=== PATIENT | female | born 1980 | race Caucasian/White ===

== ENCOUNTER → 2017-06-05 10:58 | Outpatient (CLI) | payer OTHER, SELFPAY ==
[2017-06-05 11:57] LABS: Hematocrit 39.5 % (37-47); Hemoglobin 13.3 g/dl (12.0-15.0); Mean Corp Hgb Conc 33.7 g/gl (32-36); Mean Corpuscular Hgb 30.6 pg (27.0-32.0); Mean Platelet Vol. 10.6 fl (6.2-12.0); Platelet Count 267 K/mm3 (150-450); RBC Distribution Width CV 12.5 % (11.6-14.6); RBC Distribution Width SD 41.1 fl (35.1-43.9); Red Blood Count 4.34 M/mm3 (4.2-5.4); White Blood Count 6.6 K/mm3 (4.4-11.0)
[2017-06-05 11:58] LABS: Scan Indicated on CBC? Y/N NO
[2017-06-05 12:37] LABS: hCG Titer Quant., Serum < 1 mIU/mL (<9 non-preg)
[2017-06-05 12:44] LABS: ALB/GLOB Ratio 1.1 RATIO (0.9-2.4); AST(SGOT) 13 U/L (15-37); Alanine Aminotransfer ALT/SGPT 16 U/L (13-56); Albumin, Serum 3.6 g/dL (3.2-5.0); Alkaline Phosphatase 51 U/L (45-117); Anion Gap 7 (5-15); BUN 9 mg/dL (7-18); BUN/Creat Ratio 12.9 RATIO (10-20); Bilirubin, Direct 0.05 mg/dL (0.00-0.30); Calcium,Total 9.1 mg/dL (8.5-10.1); Chloride 108 mmol/L (98-107); EST Glomerular Filtration Rate 99 mL/min (>60); Est Glom Filt Rate - Afr Amer 120 mL/min (>60); Estradiol 28.9 pg/mL; Follicle Stimulating Hormone 6.5 mIU/mL; Globulin 3.4 g/dL (2.2-4.2); Glucose 88 mg/dL (74-106); Luteinizing Hormone 3.2 mIU/mL; Potassium 3.9 mmol/L (3.5-5.1); Prolactin 3.4 ng/mL; Sodium Level 139 mmol/L (136-145); Thyroid Stim Hormone (TSH) 0.86 uIU/mL (0.358-3.74)
[2017-06-05 12:49] LABS: Progesterone Level 0.69 ng/mL (See Comment); Rubella IgG > 500.0 IU/mL; Vitamin D,25 Hydroxy 16.8 ng/mL (29.95-100.01)
[2017-06-08 14:07] LABS: DHEA Sulfate 322.9 ug/dL (57.3-279.2)
[2017-06-08 15:30] LABS: Anti-Mullerian Hormone,Serum 2.19 ng/mL (.); V-Zoster IgG (Immunity) 1255 index (Immune >165)
[2017-06-09 11:22] LABS: 17-Hydroxyprogesterone 15 ng/dL (.)
== END ==
PROVIDERS: Family Provider Emergency Medicine; PCP Emergency Medicine; Visit Provider Obstetrics & Gynecology Reproductive Endocrinology
DX: N91.4 Secondary oligomenorrhea (principal); E55.9 Vitamin D deficiency, unspecified; R53.83 Other fatigue; Z01.83 Encounter for blood typing; Z32.00 Encounter for pregnancy test, result unknown; Z11.59 Encounter for screening for other viral diseases; Z11.9 Encounter for screening for infectious and parasitic diseases, unspecified
CPT/HCPCS: 36415; 80053; 82248; 82306; 82627; 82670; 83001; 83002; 83498; 83516; 84144; 84146; 84403; 84439; 84443; 84702; 85027; 86762; 86787; 86900; 82626

== ENCOUNTER → 2017-12-06 08:35 | Outpatient (CLI) | payer OTHER, SELFPAY ==
[2017-12-06 09:18] LABS: hCG Titer Quant., Serum < 1 mIU/mL (<9 non-preg)
== END ==
PROVIDERS: Referring Provider Obstetrics & Gynecology Reproductive Endocrinology; Visit Provider Obstetrics & Gynecology Reproductive Endocrinology
DX: Z32.00 Encounter for pregnancy test, result unknown (principal)
CPT/HCPCS: 36415; 84702

== ENCOUNTER 2022-03-03 17:30 | Observation (INO) | payer OTHER, SELFPAY ==
[2022-03-03] VITALS (7 sets, daily range): BP systolic 98–139; BP diastolic 62–92; PULSE 73–93; RESP 16–18; TEMP 36.3–36.8; O2SAT 87–99; BMI 31.6; BMI 33.6
--- NOTE | 2022-03-03 18:07 | EDS_ITS ---
HPI HPI - GI History of Present Illness Chief Complaint: Abd Pain Narrative Narrative: 41-year-old female past medical history of hypothyroidism presents with abdominal pain that she has had all day. She denies any fevers or chills but states she is nauseated. She has not had any vomiting. She states she had 3 episodes of nonbloody diarrhea/loose stool today. States her pain is all over her abdomen that is somewhat achy but has sharp pain and the right lower quadrant to right upper quadrant of her abdomen. Past surgical history does include bilateral tubal ligation and sections. She denies any exacerbating or alleviating symptoms. She presents because of the ongoing abdominal pain. 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 HEENT: No sore throat. No neck pain. No loss of vision. No rhinorrhea. Cardiovascular: No chest pain. No palpitations. No pedal edema. Respiratory: No cough, no shortness of breath. Abdominal: Diffuse to right lower quadrant abdominal pain. Positive nausea. No vomiting. 3 episodes of nonbloody loose stool/diarrhea. Genitourinary: No dysuria. No hematuria. Musculoskeletal: No myalgias. No arthralgias. Neurologic: No headaches. No dizziness. No lightheadedness. Skin: No rash. No change in color. Psychiatric: No depression. No anxiety. EXAM Physical Exam Narrative Exam Narrative: Afebrile. Vital signs noted. HEENT: Normocephalic. Atraumatic. PERRL, EOMI. Neck soft and supple. No point tenderness or step off. Cardiovascular: Regular rate and rhythm. No murmurs, rubs, or gallops appreciated. Respiratory: No tachypnea. Lungs clear to auscultation bilaterally. Gastrointestinal: Abdomen soft, with tenderness in right lower quadrant over McBurney's point with normoactive bowel sounds. No rebound or guarding. Negative Rovsing sign. Neurological: Awake. Alert. Nonfocal, nonlateralizing. Skin: No rash. Normal color. No pallor. Musculoskeletal: No pedal edema. Full range of motion extremities. Const Vital Signs: 03/03/22 17:32 03/03/22 21:19 03/03/22 21:56 Temperature 97.8 F 97.4 F L 98.3 F Temperature Source Temporal Temporal Temporal Pulse Rate 78 86 93 Respiratory Rate 16 16 16 Respiratory Pattern Normal Blood Pressure 139/78 H 126/78 H 120/79 Blood Pressure Mean 98 94 92 Blood Pressure Source Monitor Blood Pressure Position Semi-Fowlers Blood Pressure Location Right Arm Baseline BP 126/78 Pulse Ox 99 98 87 Oxygen Delivery Method Room Air Room Air Room Air Oxygen Flow Rate (L/min) 03/03/22 22:01 03/03/22 22:15 03/03/22 22:30 Temperature 97.8 F Temperature Source Temporal Pulse Rate 92 89 76 Respiratory Rate 16 18 18 Respiratory Pattern Blood Pressure 115/77 104/92 H 107/80 Blood Pressure Mean 89 96 89 Blood Pressure Source Monitor Monitor Monitor Blood Pressure Position Semi-Fowlers Semi-Fowlers Semi-Fowlers Blood Pressure Location Right Arm Right Arm Right Arm Baseline BP 126/78 126/78 126/78 Pulse Ox 93 92 93 Oxygen Delivery Method Nasal Cannula Nasal Cannula Nasal Cannula Oxygen Flow Rate (L/min) 2 2 2 MDM MDM MDM Narrative Medical decision making narrative: In the differential diagnosis is acute appendicitis versus right-sided diverticulitis, and lower on the differential is ureterolithiasis. Comprehensive work-up was pursued. I do feel CT imaging is indicated. She was administered morphine and ondansetron and a bolus of normal saline 1 L intravenously. Although she has a bilateral tubal ligation, serum test was obtained to rule out ectopic . In review of her laboratory work, she has an elevated white count of 14.5, normal hemoglobin of 13.4, platelet count normal at 302. CMP was reviewed and is remarkable for glucose of 107 with a normal anion gap of 7. AST low at 9, ALT normal at 22. Lipase low at 51. Sodium normal at 136 with potassium normal at 3.5. Urinalysis was reviewed and is negative for infection. Serum test is negative. CT report was reviewed and she has a dilated appendix that is fluid-filled consistent with acute appendicitis as there is noted stranding. Upon repeat examination, her abdomen remains soft but she has tenderness over McBurney's point in the right lower quadrant that remains. Patient was discu ssed with Dr. Jerod Nye with general surgery. Patient will be taken to the OR. She was started on Zosyn 3.35 g intravenously. Disposition is admit to the OR in stable condition. Lab Data Attestation: I reviewed the patient's lab results. Labs: Laboratory Results - last 24 hr 03/03/22 03/03/22 03/03/22 17:48 17:48 17:48 WBC 14.5 H RBC 4.43 Hgb 13.4 Hct 39.4 MCV 88.9 MCH 30.2 MCHC 34.0 RDW Std Deviation 39.8 RDW Coeff of Pola 12.2 Plt Count 302 MPV 9.9 Immature Gran % (Auto) 0.500 Neut % (Auto) 83.1 H Lymph % (Auto) 10.2 L [place] % (Auto) 5.1 Eos % (Auto) 0.8 Baso % (Auto) 0.3 Absolute Neuts (auto) 12.0 H Absolute Lymphs (auto) 1.47 Nucleated RBC % 0 Sodium 136 Potassium 3.5 Chloride 105 Carbon Dioxide 24.0 Anion Gap 7 BUN 11 Creatinine 0.56 Estim Creat Clear Calc 116.56 Est GFR (MDRD) Af Amer 153 Est GFR (MDRD) Non-Af 126 BUN/Creatinine Ratio 19.8 Glucose 107 H Calcium 9.0 Total Bilirubin 0.40 AST 9 L ALT 22 Alkaline Phosphatase 50 Total Protein 7.1 Albumin 3.9 Globulin 3.2 Albumin/Globulin Ratio 1.2 Lipase 51 L Serum , Qual Urine Color Yellow Urine Clarity Clear Urine pH 6.0 Ur Specific [place] 1.020 Urine Protein Negative Urine Glucose (UA) Normal Urine Ketones Negative Urine Occult Blood 25 H Urine Nitrite Negative Urine Bilirubin Negative Urine Urobilinogen Normal Ur Leukocyte Esterase Negative Urine RBC 0 SEEN Urine WBC 0-5 SEEN Ur Squamous Epith Cells 0-5 SEEN Urine Bacteria 0 SEEN Urine Mucus 1+ 03/03/22 17:48 WBC RBC Hgb Hct MCV MCH MCHC RDW Std Deviation RDW Coeff of Pola Plt Count MPV Immature Gran % (Auto) Neut % (Auto) Lymph % (Auto) [place] % (Auto) Eos % (Auto) Baso % (Auto) Absolute Neuts (auto) Absolute Lymphs (auto) Nucleated RBC % Sodium Potassium Chloride Carbon Dioxide Anion Gap BUN Creatinine Estim Creat Clear Calc Est GFR (MDRD) Af Amer Est GFR (MDRD) Non-Af BUN/Creatinine Ratio Glucose Calcium Total Bilirubin AST ALT Alkaline Phosphatase Total Protein Albumin Globulin Albumin/Globulin Ratio Lipase Serum , Qual NEGATIVE Urine Color Urine Clarity Urine pH Ur Specific [place] Urine Protein Urine Glucose (UA) Urine Ketones Urine Occult Blood Urine Nitrite Urine Bilirubin Urine Urobilinogen Ur Leukocyte Esterase Urine RBC Urine WBC Ur Squamous Epith Cells Urine Bacteria Urine Mucus Radiography Diagnostic Testing: Clinical Impression(s) from Imaging Studies Abdomen/Pelvis CT 03/03/22 18:07 IMPRESSION: Acute uncomplicated appendicitis. Electronically Signed: Diego Poole MD at 19:43 EST , Discharge Plan Disposition Disposition: Acute Care Hospital [facility] Discharge Date/Time: 03/03/22 21:03
--- NOTE | 2022-03-03 18:07 | CT_ITS ---
INDICATION: RLQ pain EXAMINATION: CT ABDOMEN AND PELVIS WITH CONTRAST - CT Abdomen And Pelvis W/ Contrast Injection TECHNIQUE: Helically acquired images were obtained of the abdomen and pelvis following IV contrast. A radiation dose optimization technique was used for this scan. IV Contrast dosage and agent: 97 cc [id number] Oral contrast: None. COMPARISON: None. FINDINGS: LOWER CHEST: Lung bases are clear. No cardiomegaly or pericardial effusion. LIVER: Homogeneous. No focal mass. GALLBLADDER AND BILIARY TREE: No calcified gallstones. No gallbladder distension or wall edema. No intra- or extrahepatic biliary ductal dilation. PANCREAS: No focal cystic or solid mass. SPLEEN: Normal size without focal cystic or solid mass. ADRENAL GLANDS: No nodules. KIDNEYS AND URETERS: Normal renal size and position. No hydronephrosis. PERITONEUM: No ascites or free air. No other fluid collection. BOWEL: Enlarged, fluid-filled appendix with periappendiceal inflammatory stranding. No associated free gas or encapsulated fluid collection. No stomach or bowel distension. No focal inflammatory change. LYMPH NODES: No enlarged mesenteric or retroperitoneal lymph nodes. VESSELS: Aorta is non-dilated. URINARY BLADDER: Unremarkable. REPRODUCTIVE ORGANS: Bilateral tubal ligation clips. ABDOMINAL WALL: No discrete abdominal or pelvic wall hernia. BONES: Normal thoracolumbar vertebral alignment. CT/Abdomen/Pelvis W IV Cont ONLY IMPRESSION: Acute uncomplicated appendicitis. Electronically Signed: Diego Poole MD at 19:43 EST ,
[2022-03-03 18:11] LABS: Bacteria 0 SEEN /hpf (None Seen); Red Blood Cells-Urine 0 SEEN /hpf (0-5)
[2022-03-03] MEDS: 0.9% Normal Saline 1,000 ML 1000 ML IV (18:17)
[2022-03-03] MEDS: Ondansetron 4 MG/2 ML Vial IV ×2 (18:17→23:18)
[2022-03-03] MEDS: Morphine 4 MG/ML Syringe IV (18:17)
[2022-03-03 18:21] LABS: Color, Urine Yellow (Yellow); Glucose, Dipstick Normal (Normal); Ketone-Dipstick Negative (Negative); Leukocyte Esterase-Dipstick Negative /ul (Negative); Nitrite-Dipstick Negative (Negative); Occult Blood-Urine 25 /ul (Negative); Protein-Dipstick Negative (Negative); Urine Bilirubin Dipstick Negative (Negative); Urine Clarity Clear (Clear); Urine Urobilinogen Normal (Normal)
[2022-03-03 18:34] LABS: ALB/GLOB Ratio 1.2 RATIO (0.9-2.4); AST(SGOT) 9 U/L (15-37); Alanine Aminotransfer ALT/SGPT 22 U/L (13-56); Albumin, Serum 3.9 g/dL (3.2-5.0); Alkaline Phosphatase 50 U/L (45-117); Anion Gap 7 (5-15); BUN 11 mg/dL (7-18); BUN/Creat Ratio 19.8 RATIO (10-20); Chloride 105 mmol/L (98-107); Creatinine, Serum 0.56 mg/dL (0.55-1.02); EST Glomerular Filtration Rate 126 mL/min (>60); Est Glom Filt Rate - Afr Amer 153 mL/min (>60); Estimated Creatinine Clearance 116.56 ml/min; Globulin 3.2 g/dL (2.2-4.2); Glucose 107 mg/dL (74-106); Lipase 51 U/L (73-393); Potassium 3.5 mmol/L (3.5-5.1); Protein, Total 7.1 g/dL (6.4-8.2); Sodium Level 136 mmol/L (136-145)
[2022-03-03 18:52] LABS: Internal QC Validated? YES +Cl - CLEAR BKGD; Pregnancy, Serum, hCG Quali. NEGATIVE Negative
[2022-03-03 19:15] LABS: Mucous, Urine 1+ /hpf (<or=2+); Squamous Epithelial Cells - UA 0-5 SEEN /hpf (5-10); White Blood Cells 0-5 SEEN /hpf (0-5)
[2022-03-03 19:53] LABS: Absolute Lymphocyte Count 1.47 X10^3/uL (0.83-4.51); Basophil# 0.04 X10^3/uL; Basophil% 0.3 % (0-1); Eosinophil# 0.11 X10^3/uL; Eosinophils% 0.8 % (0-5); Hematocrit 39.4 % (37-47); Hemoglobin 13.4 g/dL (12.0-15.0); Lymphocyte # 1.47 X10^3/ul (0.83-4.51); Lymphocyte % 10.2 % (19-41); Mean Corpuscular Hgb 30.2 pg (27.0-32.0); Mean Corpuscular Volume 88.9 fL (81-99); Mean Platelet Vol. 9.9 fl (6.2-12.0); Monocyte# 0.73 X10^3/uL; Monocyte% 5.1 % (0-10); NRBC Flagged by Analyzer 0 % (0-5); Neutrophil # 12.03 X10^3/uL (2.7-7.7); Neutrophil % 83.1 % (47-70); Platelet Count 302 K/mm3 (150-450); RBC Distribution Width CV 12.2 % (11.6-14.6); RBC Distribution Width SD 39.8 fl (35.1-43.9); Red Blood Count 4.43 M/mm3 (4.2-5.4); White Blood Count 14.5 K/mm3 (4.4-11.0)
--- NOTE | 2022-03-03 20:55 | HP.PCM.SX_ITS ---
HPI - General HPI Narrative ERICA NEGRETE, is a 41 F who presents with abdominal pain. Patient reports the abdominal pain was higher and then lowered to the right lower quadrant. It started this morning. She does have nausea but no vomiting. No fevers or chills. 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 03/03/22 [History Last Taken Unknown] Allergy/AdvReac Type Severity Reaction Status Date / Time No Known Allergies Allergy Verified 03/03/22 17:30 Social History Smoking Status: Current every day smoker tobacco type: cigarettes alcohol intake: current alcohol intake frequency: holidays/special occasions only ROS Constitutional Constitutional: Denies anorexia, chills or fatigue Eyes Eyes: Denies blurry vision ENT HEENT: Denies abnormal hearing Cardiovascular Cardiovascular: Denies chest pain Respiratory/Chest Respiratory/Chest: Denies cough or dyspnea Gastrointestinal Gastrointestinal: Reports abdominal pain and nausea; Denies coffee ground emesis, constipation, rectal bleeding or vomiting Genitourinary Genitourinary: Denies change in urinary stream Musculoskeletal Musculoskeletal: Denies abnormal gait Integumentary Integumentary: Denies new lesions Neurologic Neurologic: Denies abnormal gait Psychiatric Psychiatric: Denies anxiety Endocrine Endocrinology: Denies flushing Hematologic/Lymphatic Hematologic/Lymphatic: Denies easy bleeding Vital Signs Vital Signs Vital Signs: 03/03/22 17:32 Temperature 97.8 F Temperature Source Temporal Pulse Rate 78 Respiratory Rate 16 Blood Pressure 139/78 H Blood Pressure Mean 98 Pulse Ox 99 Oxygen Delivery Method Room Air Weight Weight: 190 lb Body Mass Index (BMI) 31.6 Physical Exam Const oriented x3 and no apparent distress Resp normal respiratory effort Cardio regular rate and regular rhythm GI soft to palpation Palpation: tender RLQ Results Lab / Micro Data Result Diagrams: 03/03/22 17:48 03/03/22 17:48 Labs: Laboratory Results - last 24 hr 03/03/22 17:48: Sodium 136, Potassium 3.5, Chloride 105, Carbon Dioxide 24.0, Anion Gap 7, BUN 11, Creatinine 0.56, Estim Creat Clear Calc 116.56, Est GFR (MDRD) Af Amer 153, Est GFR (MDRD) Non-Af 126, BUN/Creatinine Ratio 19.8, Glucose 107 H, Calcium 9.0, Total Bilirubin 0.40, AST 9 L, ALT 22, Alkaline Phos phatase 50, Total Protein 7.1, Albumin 3.9, Globulin 3.2, Albumin/Globulin Ratio 1.2, Lipase 51 L 03/03/22 17:48: Urine Color Yellow, Urine Clarity Clear, Urine pH 6.0, Ur Specific [place] 1.020, Urine Protein Negative, Urine Glucose (UA) Normal, Urine Ketones Negative, Urine Occult Blood 25 H, Urine Nitrite Negative, Urine Bilir ubin Negative, Urine Urobilinogen Normal, Ur Leukocyte Esterase Negative, Urine RBC 0 SEEN, Urine WBC 0-5 SEEN, Ur Squamous Epith Cells 0-5 SEEN, Urine Bacteria 0 SEEN, Urine Mucus 1+ 03/03/22 17:48: WBC 14.5 H, RBC 4.43, Hgb 13.4, Hct 39.4, MCV 88.9, MCH 30.2, MCHC 34.0, RDW Std Deviation 39.8, RDW Coeff of Pola 12.2, Plt Count 302, MPV 9.9, Immature Gran % (Auto) 0.500, Neut % (Auto) 83.1 H, Lymph % (Auto) 10.2 L, [place] % (Auto) 5.1, Eos % (Auto) 0.8, Baso % (Auto) 0.3, Absolute Neuts (auto) 12.0 H, Absolute Lymphs (auto) 1.47, Nucleated RBC % 0 03/03/22 17:48: Serum , Qual NEGATIVE Radiology Impression Abdomen/Pelvis CT 03/03/22 18:07 IMPRESSION: Acute uncomplicated appendicitis. Electronically Signed: Diego Poole MD at 19:43 EST , Assessment & Plan Assessment/Plan (1) Acute appendicitis: QUALIFIERS: Acute appendicitis type: unspecified acute appendicitis type Qualified Code(s): K35.80 - Unspecified acute appendicitis PLAN: The patient has an elevated white count and right lower quadrant pain. CT scan is consistent with acute appendicitis. I discussed laparoscopic ap pendectomy the patient in detail. I discussed the risks including but not limited to bleeding, infection injury other organs such as the bowel, bladder, ureter. Patient understands and is willing to proceed. Patient has been started on Zosyn. Jerod Nye MD Pager: [facility] [address] [place] [address] [address] [place] [address] Office:
--- NOTE | 2022-03-03 21:35 | APP_PTH ---
PATIENT: ERICA WILLIAM LOC: MS3 U#:[id number] AGE/SX: 41/F ROOM: MA306 RE03/03/[address]: Dr. Jerod Nye MD : 1980 BED: 1 DIS: 03/04/2022 SPEC #: [id number] RECD: 03/07/22 11:21 STATUS: BUD HERBERTXavier #: [id number] TONO: 03/03/22 21:[address]: Jerod Nye DEPT: SURGICAL PATHOLOGY RECD BY: Nadege Saucedo ENTERED: 03/07/22 11:21 SP TYPE: APPENDIX OTHR DR: No Primary Care Phys Tissues: Appendix, NOS Procedures: Surgery Specimen Level III HEADER OPERATION: Laparoscopic appendectomy PRE-OP DIAGNOSIS: Acute appendicitis TISSUE SUBMITTED: Appendix MICROSCOPIC DIAGNOSIS Appendix, appendectomy: Acute appendicitis. Acute serositis. AM:paul 03/08/2022 MICROSCOPIC DESCRIPTION Slides are reviewed. GROSS DESCRIPTION Received in fixative is one container labeled with the patient's name and designated appendix. The specimen consists of an L-shaped appendix measuring 9 cm in length and 1 cm in diameter. The attached periappendiceal adipose tissue measures 3 cm in width. The serosa is covered with mcbride, purulent exudate. The lumen does not contain any fecalith. It is filled with purulent material. Special Ed Assistant sections are submitted in one cassette. / SJ:paul 03/07/2022 TC:2 CPT: 17679
[2022-03-03] MEDS: Bupiv/Epi 0.5% Mpf 30 ML Vial (21:43)
--- NOTE | 2022-03-03 21:49 | OP.PCM_ITS ---
Report of Operation Date of Procedure: 03/03/22 Pre-Operative Diagnosis: Acute appendicitis Post-Operative Diagnosis: Acute appendicitis Surgery/Procedure Performed:: Laparoscopic appendectomy Specimen's removed: Appendix Estimated Blood Loss (mL): Minimal Description of Procedure: The patient was brought into the operating room and general anesthesia was induced. The left arm was tucked and the abdomen was prepped and draped in usual sterile fashion. A small midline incision was made superior to the umbilicus and deepened to the level of the fascia. The fascia was elevated and incised. The peritoneum was also elevated and incised. A finger sweep was performed and a balloon trocar was placed into the abdomen and inflated. The abdomen was insufflated to 15 mmHg and the camera was inserted and the abdomen was inspected for any injuries upon entering the abdomen. There were none. The patient was placed in Trendelenburg position and a 5 mm ports placed in the left lower quadrant and suprapubic areas under direct visualization. Next using atraumatic bowel graspers the appendix was identified. The appendix was grasped and elevated and Enseal was used to take down the mesoappendix. A stapler was used to come across the base of the appendix. The appendix was then placed in Endo Catch bag and removed through the umbilical incision. The staple line was inspected and found to be hemostatic and intact. The 2 5 mm ports are removed under direct visualization. The balloon trocar was deflated and removed and all the air was removed from the abdomen. The umbilical incision fascia was closed with an 0 Vicryl [id number] suture. The incisions were then irrigated with saline and dried. Local anesthetic was injected into the incision sites. The skin incisions were then closed with interrupted 4-0 Monocryl suture and Steri- Strips. Bandages were applied and the patient was awoken and taken to PACU in stable condition. Patient tolerated the procedure well. Admit VTE Documentation VTE Mechan Device Prophylaxis: SCD's
[2022-03-03] MEDS: 0.9% Normal Saline 1,000 ML 60 ML IV (23:19)
[2022-03-03] MEDS: Morphine 2 MG/ML Syringe IV (23:19)
[2022-03-04 01:04] VITALS: BP 96/57; PULSE 85; RESP 18; TEMP 36.4; O2SAT 93
[2022-03-04] MEDS: Acetaminophen 325 MG Tablet 650 MG PO ×2 (03:09→10:02)
[2022-03-04 03:12] VITALS: BP 91/53; PULSE 61; RESP 16; TEMP 36.8; O2SAT 94
[2022-03-04 06:37] VITALS: BP 91/53; PULSE 61; RESP 18; TEMP 36.8; O2SAT 94
--- NOTE | 2022-03-04 07:32 | PN.SURG_ITS ---
Subjective Subjective Patient reports she is doing well with no issues overnight. Objective Data Objective Data Vital Signs: Vital Signs Temp Pulse Resp BP Pulse Ox O2 Del Method O2 Flow Rate 98.3 F 61 18 91/53 L 94 Room Air 2 03/04/22 06:37 03/04/22 06:37 03/04/22 06:37 03/04/22 06:37 03/04/22 06:37 03/04/22 06:37 03/03/22 22:30 Oxygen Flow Rate (L/min) 2 Oxygen Delivery Method Room Air Weight: 189 lb 13.088 oz Body Mass Index (BMI) 33.6 Intake & Output: Intake and Output for Last 24 Hours 03/02/22 03/03/22 03/04/22 23:59 23:59 23:59 Intake Total 1050 / 1050 120 / 120 Balance 1050 / 1050 120 / 120 Lab / Micro Data Result Diagrams: 03/03/22 17:48 03/03/22 17:48 Labs: Laboratory Results - last 24 hr 03/03/22 17:48: Sodium 136, Potassium 3.5, Chloride 105, Carbon Dioxide 24.0, Anion Gap 7, BUN 11, Creatinine 0.56, Estim Creat Clear Calc 116.56, Est GFR (MDRD) Af Amer 153, Est GFR (MDRD) Non-Af 126, BUN/Creatinine Ratio 19.8, Glucose 107 H, Calcium 9.0, Total Bilirubin 0.40, AST 9 L, ALT 22, Alkaline Phosphatase 50, Total Protein 7.1, Albumin 3.9, Globulin 3.2, Albumin/Globulin Ratio 1.2, Lipase 51 L 03/03/22 17:48: Urine Color Yellow, Urine Clarity Clear, Urine pH 6.0, Ur Specific [place] 1.020, Urine Protein Negative, Urine Glucose (UA) Normal, Urine Ketones Negative, Urine Occult Blood 25 H, Urine Nitrite Negative, Urine Bilirubin Negative, Urine Urobilinogen Normal, Ur Leukocyte Esterase Negative, Urine RBC 0 SEEN, Urine WBC 0-5 SEEN, Ur Squamous Epith Cells 0-5 SEEN, Urine Bacteria 0 SEEN, Urine Mucus 1+ 03/03/22 17:48: WBC 14.5 H, RBC 4.43, Hgb 13.4, Hct 39.4, MCV 88.9, MCH 30.2, MCHC 34.0, RDW Std Deviation 39.8, RDW Coeff of Pola 12.2, Plt Count 302, MPV 9.9, Immature Gran % (Auto) 0.500, Neut % (Auto) 83.1 H, Lymph % (Auto) 10.2 L, [place] % (Auto) 5.1, Eos % (Auto) 0.8, Baso % (Auto) 0.3, Absolute Neuts (auto) 12.0 H, Absolute Lymphs (auto) 1.47, Nucleated RBC % 0 03/03/22 17:48: Serum , Qual NEGATIVE Radiography Diagnostic Testing: Radiology Impression Abdomen/Pelvis CT 03/03/22 18:07 IMPRESSION: Acute uncomplicated appendicitis. Electronically Signed: Diego Poole MD at 19:43 EST , Physical Exam Const oriented x3 and no apparent distress Resp normal respiratory effort GI soft to palpation and non-tender Assessment & Plan Assessment/Plan (1) Acute appendicitis: QUALIFIERS: Acute appendicitis type: unspecified acute append icitis type Qualified Code(s): K35.80 - Unspecified acute appendicitis PLAN: Patient doing well after laparoscopic appendectomy. There is a little bit of sanguinous drainage from the umbilical incision. Patient reports no abdominal pain. When she tolerates a diet I will discharge her home. Jerod Nye MD Pager: [facility] [address] [place] [address], [address] [place] [address] Office:
--- NOTE | 2022-03-04 07:41 | DCINST_ITS ---
Discharge Instructions Procedure Appendectomy Diet Discharge Diet: Light diet - advance as tolerated Activity Discharge Activity: May Not Drive (for 2-3 days or while taking narcotic pain medications.) May shower in (days): 1 Lifting Restrictions: 20 lbs for 2 weeks Dressing / Incision Call your doctor if your incision/area has: Continuous Slow Oozing, Sudden Increased Bleeding, Increased Pain/ Swelling, Increased Redness and Foul Smelling Discharge Call your doctor if you observe: Fever of 101 or Higher Suture Line Care: Avoid Pulling/Pushing and Avoid Pinching/Bending Remove Dressing in: 2 days Cleanse incision/area with: Soap & Water Additional Dressing/Incision Instructions:: Keep dressing clean and dry. Change or remove dressing in 2 days. Leave steri strips for 1 week. May protect with a gauze bandaid. Follow Up Care Please Follow Up With: Jerod Nye MD When: Please call to schedule 2 week follow up appointment. [phone] Test Results: Test results from this visit will be discussed in further detail at your follow- up appointment, if applicable. 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
[2022-03-04 08:33] VITALS: BP 108/70; PULSE 81; RESP 18; TEMP 36.7; O2SAT 94
[2022-03-04 09:53] VITALS: BP 108/70; PULSE 81; RESP 18; TEMP 36.7; O2SAT 94
== END 2022-03-04 10:14 | disposition home or self-care (01) ==
LOC: ED 18:39 → SDC 20:10 → MS3 03-04 07:44
PROVIDERS: Admitting Provider Surgery; Emergency Provider Emergency Medicine; Visit Provider Surgery
PROC: 0DTJ4ZZ Resection of Appendix, Percutaneous Endoscopic Approach (ICD-10-PCS; CPT 44970; principal; 2022-03-03 21:15)
DX: K35.80 Unspecified acute appendicitis (principal); F17.290 Nicotine dependence, other tobacco product, uncomplicated; E03.9 Hypothyroidism, unspecified; Z79.890 Hormone replacement therapy
CPT/HCPCS: 44970; 00840; 74177; 80053; 81001; 83690; 84703; 85025; 88304; 96365; 96366; 96375; 96376; 99221; 99282; J7030; J7040; Q9967; C1760; G0378; J2405

== ENCOUNTER 2024-02-26 07:19 | Day surgery (SDC) | payer OTHER, SELFPAY ==
[2024-02-26] VITALS (7 sets, daily range): BP systolic 78–105; BP diastolic 56–74; PULSE 16–83; RESP 14–18; TEMP 36.4–36.5; O2SAT 98–100; BMI 27.3
--- NOTE | 2024-02-26 07:37 | PRE.ANES_ITS ---
ASA Classification* ASA Classification ASA Classification: 2 Assessment & Plan Anesthesia* Anesthesia Assessment Anesthesia Assessment: Discussed sedation and/or anesthesia options, risks, benefits, and alternatives with patient/parents/legal guardian/POA. Questions invited. The patient/parents/legal guardian/POA seems to understand and agrees to proceed with anesthesia plan. Reviewed the physical assessment, medical history, allergy history and patient home medications list prior to surgery/procedure/anesthetic and documented any changes. Performed airway and anesthesia risk assessments. Anesthesia Type Anesthesia Type: MAC Anesthesia Focused Assessment* Airway Assessment Mouth opens: >3 cm Mallampati Score: II Focused Labs Anesthesia Preop lab: CBC WBC 14.5 K/mm3 (4.4-11.0) H 03/03/22 17:48 RBC 4.43 M/mm3 (4.2-5.4) 03/03/22 17:48 Hgb 13.4 g/dL (12.0-15.0) 03/03/22 17:48 Hct 39.4 % (37-47) 03/03/22 17:48 Plt Count 302 K/mm3 (150-450) 03/03/22 17:48 CHEMISTRY Potassium 3.5 mmol/L (3.5-5.1) 03/03/22 17:48 Sodium 136 mmol/L (136-145) 03/03/22 17:48 BUN 11 mg/dL (7-18) 03/03/22 17:48 Creatinine 0.56 mg/dL (0.55-1.02) 03/03/22 17:48 Glucose 107 mg/dL (74-106) H 03/03/22 17:48 TSH 0.86 uIU/mL (0.358-3.74) 06/05/17 11:20 COAG HCG, Quant < 1 mIU/mL (<9 non-preg) 12/06/17 08:44 Urine Test Negative Negative 02/18/12 03:20 Pre-Assessment Diagnosis/Proposed Procedure Planned Operative Procedure(s): COLONOSCOPY-OA Anesthesia History 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 When Was Last Pacemaker Check QUESTION #4 FULL TEXT: You/Your Family Experience fever (hyperthermia) with Anesthesia Last Oral Intake Last Oral intake: Last Oral Intake NPO since Meds taken in AM with sips of water? Meds patient instructed to take am of surgery PONV PONV - cloth bleaching range operator chief: PONV - cloth bleaching range operator chief Female Yes 02/21/24 15:27 HX of Motion Sickness No 02/21/24 15:27 HX of N/V After Surgery No 02/21/24 15:27 Non-Smoker No 02/21/24 15:27 Duration of Surgery greater No 02/21/24 15:27 than 60 minutes Number of Risk Factors 1 02/21/24 15:27 PONV Score Low Risk 02/21/24 15:27 Height & Weight Height & Weight: Anesthesia: Height & Weight Height 5 ft 3 in 12/20/23 11:50 Respiratory Assessment Respiratory Assessment - cloth bleaching range operator chief: Respiratory Tract Infection Hx - cloth bleaching range operator chief Hx Respiratory Tract Infection No 02/21/24 15:27 STOP Sleep Apnea STOP Sleep Apnea - cloth bleaching range operator chief: STOP Sleep Apnea - cloth bleaching range operator chief Hx Hypertension No 02/21/24 15:27 Hx Sleep Apnea No 02/21/24 15:27 CPAP BIPAP Do you snore loudly (louder No 02/21/24 15:27 than talking or can be heard Do you often feel tired/ No 02/21/24 15:27 fatigued/ sleepy during daytime? Has anyone observed you stop No 02/21/24 15:27 breathing during sleep? STOP Results Negative 02/21/24 15:27 QUESTION #5 FULL TEXT : Do you snore loudly (louder than talking or can be heard through closed doors)? Tobacco Use History Tobacco Use History - cloth bleaching range operator chief: Tobacco Use History - cloth bleaching range operator chief Tobacco Use Smoking Status Current every day smoker 02/21/24 15:27 Hx Tobacco Use Yes 02/21/24 15:27 Years Smoking Packs Smoked per Day Smoking Cessation Date was within the last 15 years Hx Smoking Cessation Date Hx Smoking Cessation Counseling Hematologic Medial History Hematologic Hx - cloth bleaching range operator chief: Hematologic Medical Hx - sulfonator operator Hx of Blood Transfusion No 02/21/24 15:27 Hx of Transfusion in last 3 No 02/21/24 15:27 Months Date of Last Transfusion (if within last 3 months) Ever experience any problems No 02/21/24 15:27 with transfusion(s)? Specify any problems Hx of Preganancy in last 3 No 02/21/24 15:27 Months Nurse Filling Out Transfusion VCHRISTIN 02/21/24 15:27 & Questions: Date: 02/21/24 02/21/24 15:27 Time: 15:28 02/21/24 15:27 Patient unable to answer at this time (ie. confused, unrespo /Reproduction History /Reproductive History - cloth bleaching range operator chief: /Reproductive Hx- cloth bleaching range operator chief Hx Now No 02/21/24 15:27 Gestational Age (in weeks): EDC: Hx Hx Para Hx Section SAB No 02/21/24 15:27 PFSH Medical History Wears glasses Hypothyroidism Vapes nicotine containing substance Home Medications ?Medication ?Instructions ?Recorded ?Last Taken ?Type acetaminophen 325 mg tablet 650 mg (2 x 325 mg) PO Q4H PRN PRN 03/04/22 Unknown Rx (Tylenol) Pain 1-10/Fever #0 tabs semaglutide (weight loss) 1.7 1.7 mg subcut QWEEK 12/20/23 02/14/24 History mg/0.75 mL subcutaneous pen injector Allergy/AdvReac Type Severity Reaction Status Date / Time Dressing: Non-Medicated AdvReac Hives Verified 02/26/24 07:35 (bandage) lactose AdvReac Abd Verified 02/26/24 07:35 cramps/diarrhea latex AdvReac Hives Verified 02/26/24 07:35 Surgical History Hx of tubal ligation History of appendectomy (~02/2022) Curtis teeth removed Delivery by section Social History household members: spouse current occupational status: employed Smoking Status: Current every day smoker tobacco type: e-cigarettes alcohol intake: current alcohol intake frequency: holidays/special occasions only substance use type: does not use Review of Systems (Anesthesia) ROS Narrative System reviewed and no additional complaints, except as documented.
--- NOTE | 2024-02-26 07:52 | HP.PCM_ITS ---
[facility] - General General Date of Admission: 02/26/24 Date of Service: 02/26/24 Chief Complaint: Screening colonoscopy [facility] Narrative ERICA NEGRETE, is a 43 F who presents today for screening colonoscopy. She has not had a colonoscopy in the past. The only medicine that she takes is semaglutide. She stopped that approximately 13 days ago. She does not have any other medical history. Overall she is in very good health. [facility] Medical History Wears glasses Hypothyroidism Vapes nicotine containing substance Home Medications ?Medication ?Instructions ?Recorded ?Last Taken ?Type acetaminophen 325 mg tablet 650 mg (2 x 325 mg) PO Q4H PRN PRN 03/04/22 Unknown Rx (Tylenol) Pain 1-10/Fever #0 tabs semaglutide (weight loss) 1.7 1.7 mg subcut QWEEK 12/20/23 02/14/24 History mg/0.75 mL subcutaneous pen injector Allergy/AdvReac Type Severity Reaction Status Date / Time Dressing: Non-Medicated AdvReac Hives Verified 02/26/24 07:35 (bandage) lactose AdvReac Abd Verified 02/26/24 07:35 cramps/diarrhea latex AdvReac Hives Verified 02/26/24 07:35 Surgical History Hx of tubal ligation History of appendectomy (~02/2022) [place] teeth removed Delivery by section Social History household members: spouse current occupational status: employed Smoking Status: Current every day smoker tobacco type: e-cigarettes alcohol intake: current alcohol intake frequency: holidays/special occasions only substance use type: does not use ROS Constitutional Constitutional: Denies fatigue, fever(s), poor appetite, weight gain or weight loss Gastrointestinal Gastrointestinal: Denies belching, bloating, change in bowel habits, change in stool character, chewing difficulty, coffee ground emesis, constipation, cramping, diarrhea, dyspepsia, dysphagia, early satiety, excessive flatus, fecal incontinence, heartburn, hematemesis, hematochezia, hemorrhoids, loose stools, melena, nausea, odynophagia, rectal bleeding, tenesmus, vomiting or weight changes Vital Signs Vital Signs Vital Signs: 02/26/24 07:35 Temperature 97.6 F L Temperature Source Temporal Pulse Rate 83 Respiratory Rate 16 Blood Pressure 105/74 Blood Pressure Mean 84 Blood Pressure Source Monitor Blood Pressure Position Semi-Fowlers Blood Pressure Location Right Arm Pulse Ox 100 Oxygen Delivery Method Room Air Weight Weight: 154 lb Body Mass Index (BMI) 27.3 Physical Exam Const oriented x3 and no apparent distress Resp normal respiratory effort GI soft to palpation and non-tender Assessment & Plan Assessment/Plan (1) Encounter for screening for malignant neoplasm of colon: PLAN: She was explained alternatives, risk, benefits including not withstanding bleeding, infection, sepsis, perforation, need for emergent urgent . She will have an ASA of 3.
--- NOTE | 2024-02-26 08:30 | COLBX_PTH ---
PATIENT: ERICA WILLIAM LOC: EN U#:[id number] AGE/SX: 43/F ROOM: RE02/26/[address]: Dr. Ermias Arita DO : 1980 BED: DIS: 02/26/2024 SPEC #: [id number] RECD: 02/26/24 10:05 STATUS: BUD PRAVEENA #: [id number] TONO: 02/26/24 08:[address]: Ermias Arita DEPT: SURGICAL PATHOLOGY RECD BY: Marsha Ramsey ENTERED: 02/26/24 10:50 SP TYPE: COLON BX OT DR: Carri Hanson, SENIOR MECHANICAL ENGINEER-C Tissues: A - Transverse colon B - Rectum, NOS Procedures: Surgery Specimen Level IV HEADER OPERATION: Colonoscopy with biopsy PRE-OP DIAGNOSIS: Encounter for screening for malignant neoplasm of colon TISSUE SUBMITTED: A- Transverse colon polyp biopsy, B- Rectum polyp biopsy MICROSCOPIC DIAGNOSIS A. Transverse colon polyp, biopsy: Tubular adenoma. B. Rectum polyp, biopsy: Hyperplastic colonic polyp. /mr 02/27/2024 MICROSCOPIC DESCRIPTION Slides are reviewed. GROSS DESCRIPTION A. Received in fixative is one container labeled with the patient's name and designated Transverse colon polyp biopsy. The specimen consists of two irregular fragments of light castro soft tissue that in aggregate measure 0.7 x 0.3 x 0.2 cm. The specimen is totally submitted in one cassette. B. Received in fixative is one container labeled with the patient's name and designated Rectum polyp biopsy. The specimen consists of one irregular fragment of light castro soft tissue that measures 0.5 x 0.3 x 0.1 cm. The specimen is totally submitted in one cassette. TOPHER.mr 02/26/2024 TC:5 [facility]:[id number]
--- NOTE | 2024-02-26 09:35 | OP.COLON_ITS ---
Patient Name: Molly Elizondo Procedure Date: 02/26/2024 9:05 AM Date of : 1980 Age: 43 Procedure: Colonoscopy Indications: Screening for colorectal malignant neoplasm Providers: Ermias Arita DO Referring MD: Ermias Arita DO Medicines: Monitored Anesthesia Care Patient Profile: This is a 43 year old female. Refer to note in patient chart for documentation of history and physical. Last Colonoscopy: none. The patient's first colonoscopy is today. Complications: No immediate complications. Procedure: Pre-Anesthesia Assessment: - Prior to the procedure, a History and Physical was performed, and patient medications and allergies were reviewed. The patient is competent. The risks and benefits of the procedure and the sedation options and risks were discussed with the patient. All questions were answered and informed consent was obtained. Patient identification and proposed procedure were verified by the physician in the pre-procedure area. Mental Status Examination: alert and oriented. Airway Examination: normal oropharyngeal airway and neck mobility. Respiratory Examination: clear to auscultation. CV Examination: normal. Prophylactic Antibiotics: The patient does not require prophylactic antibiotics. Prior Anticoagulants: The patient has taken no anticoagulant or antiplatelet agents except for NSAID medication. ASA Grade Assessment: II - A patient with mild systemic disease. After reviewing the risks and benefits, the patient was deemed in satisfactory condition to undergo the procedure. The anesthesia plan was to use monitored anesthesia care (MAC). Immediately prior to administration of medications, the patient was re-assessed for adequacy to receive sedatives. The heart rate, respiratory rate, oxygen saturations, blood pressure, adequacy of pulmonary ventilation, and response to care were monitored throughout the procedure. The physical status of the patient was re-assessed after the procedure. After I obtained informed consent, the scope was passed under direct vision. Throughout the procedure, the patient's blood pressure, pulse, and oxygen saturations were monitored continuously. The Colonoscope was introduced through the anus and advanced to the cecum, identified by appendiceal orifice and ileocecal valve. The colonoscopy was performed without difficulty. The patient tolerated the procedure well. The quality of the bowel preparation was adequate. The ileocecal valve, appendiceal orifice, and rectum were photographed. Scope In: 9:12:31 AM Scope Withdrawal Time 0 hours 9 minutes 55 seconds Scope Out: 9:30:36 AM Total Procedure Duration Time 0 hours 18 minutes 5 seconds Findings: The perianal and digital rectal examinations were normal. Two sessile polyps were found in the rectum and transverse colon. The polyps were 7 mm in size. These polyps were removed with a jumbo cold forceps. Resection and retrieval were complete. Verification of patient identification for the specimen was done. Estimated blood loss was minimal. The exam was otherwise without abnormality on direct and retroflexion views. Impression: - Two 7 mm polyps in the rectum and in the transverse colon, removed with a jumbo cold forceps. Resected and retrieved. - The examination was otherwise normal on direct and retroflexion views. Recommendation: - Discharge patient to home. - Resume previous diet. - Continue present medications. - Await pathology results. - Repeat colonoscopy in 5 years for surveillance. Procedure Code(s): --- Professional --- 40954, Colonoscopy, flexible; with biopsy, single or multiple CPT copyright 2021 [employer] [employer]. All rights reserved. The codes documented in this report are preliminary and upon digital strategy director review may be revised to meet current compliance requirements. Ermias Arita DO 02/26/2024 9:35:31 AM This report has been signed electronically. Number of Addenda: 0 Note Initiated On: 02/26/2024 9:05 AM
--- NOTE | 2024-02-26 09:36 | OP.CCLET_ITS ---
02/26/2024 Chapo Nunez Re : Colonoscopy procedure for Molly Elizondo Dear Valentin This procedure was performed on Monday, February 26, 2024. My impressions and recommendations are as follows: Impressions : - Two 7 mm polyps in the rectum and in the transverse colon, removed with a jumbo cold forceps. Resected and retrieved. - The examination was otherwise normal on direct and retroflexion views. Recommendations : - Discharge patient to home. - Resume previous diet. - Continue present medications. - Await pathology results. - Repeat colonoscopy in 5 years for surveillance. My findings are described in the full procedure note, which is enclosed. If I can be of further assistance, please feel free to contact me at . Sincerely, Ermias Friend, 02/26/2024 9:35:31 AM This report has been signed electronically.
--- NOTE | 2024-02-26 09:43 | PCM.POST.ANE ---
Anesthesia: Postop Eval I Current Vital Signs Temperature: 97.6 F Pulse Rate: 16 Blood Pressure: 88/67 Respiratory Rate: 16 Pulse Ox: 99 Oxygen Delivery Method: Room Air Assessment Airway patent: Yes Spontaneous unlabored respirations: Yes Mental status: Awake and Calm nausea: No Vomiting: No Anesthesia Complication: No Fluid Hydration Crystalloid volume administer (ml): 50 Total IV fluid infused: 50 Progress Note Anesthesia document: Postop Eval 1 completed: Yes
--- NOTE | 2024-02-26 10:30 | PCM.POSTANE2 ---
Anesthesia Postop Eval I Sum Postop Eval Completion status Anesthesia document: Postop Eval 1 completed: Yes Anesthesia Postop Eval I Summary Anesthesia Postop Eval I Summary: Anesthesia Postop Eval I: Assessment Summary Airway patent Yes 02/26/24 09:44 [email or web address] Spontaneous unlabored Yes 02/26/24 09:44 [email or web address] respirations Mental status Awake,Calm 02/26/24 09:44 [email or web address] nausea No 02/26/24 09:44 [email or web address] Vomiting No 02/26/24 09:44 [email or web address] Anesthesia Postop Eval I: Fluid Summary Crystalloid volume administer 50 02/26/24 09:44 [email or web address] (ml) Colloids volume administered ( ml) Blood Product volume administered (ml) Total IV fluid infused 50 02/26/24 09:44 [email or web address] Anesthesia Postop Eval I: Summary Notes Anesthesia Complication No 02/26/24 09:44 [email or web address] Anesthesia Complication Comment: Post-operative progress note Anesthesia: Postop Eval II Evaluation Mental status: Awake Pain Level: 0 nausea: No Vomiting: No
== END 2024-02-26 10:26 | disposition home or self-care (01) ==
LOC: EN 07:21 → AC 07:22
PROVIDERS: PCP Nurse Practitioner Family; Referring Provider Nurse Practitioner Family; Visit Provider Internal Medicine Gastroenterology
PROC: 0DJD8ZZ Inspection of Lower Intestinal Tract, Via Natural or Artificial Opening Endoscopic (ICD-10-PCS; CPT 45378; principal; 2024-02-26 08:25)
DX: Z12.11 Encounter for screening for malignant neoplasm of colon (principal); K62.1 Rectal polyp; Z79.899 Other long term (current) drug therapy; F17.290 Nicotine dependence, other tobacco product, uncomplicated; D12.3 Benign neoplasm of transverse colon
CPT/HCPCS: 45380; 88305; A4216; J2405